=== PATIENT | male | born 1955 | race Caucasian/White ===

== ENCOUNTER 2020-08-21 11:42 | Day surgery (SDC) | payer OTHER ==
[~2020-08-21] VITALS: Ht 172.7 cm; Wt 87.2 kg
[2020-08-21] MEDS ORDERED: B COMPLEX FORM0.4 MG (11:58)
[2020-08-21] MEDS ORDERED: MINO2.5 (11:58)
[2020-08-21] MEDS ORDERED: ROSU5 (11:58)
[2020-08-21] MEDS ORDERED: Echinacea80 MG (11:59)
[2020-08-21] MEDS ORDERED: OCUVITE BLUE L1 EACH (11:59)
[2020-08-21] MEDS ORDERED: Coq-1030 MG (11:59)
== END 2020-08-21 13:57 | disposition home or self-care (01) ==
LOC: ORSCSDS 11:42
PROVIDERS: Student in an Organized Health Care Education/Training Program
PROC: 0DBK8ZX Excision of Ascending Colon, Via Natural or Artificial Opening Endoscopic, Diagnostic (ICD-10-PCS; principal; 2020-08-21 13:00)
PROC: 0DBN8ZX Excision of Sigmoid Colon, Via Natural or Artificial Opening Endoscopic, Diagnostic (ICD-10-PCS; principal; 2020-08-21 13:00)
PROC: 0DBH8ZX Excision of Cecum, Via Natural or Artificial Opening Endoscopic, Diagnostic (ICD-10-PCS; principal; 2020-08-21 13:00)
PROC: 0DBM8ZX Excision of Descending Colon, Via Natural or Artificial Opening Endoscopic, Diagnostic (ICD-10-PCS; principal; 2020-08-21 13:00)
PROC: 0DBL8ZX Excision of Transverse Colon, Via Natural or Artificial Opening Endoscopic, Diagnostic (ICD-10-PCS; principal; 2020-08-21 13:00)
DX: Z12.11 Encounter for screening for malignant neoplasm of colon (principal); D12.2 Benign neoplasm of ascending colon; D12.0 Benign neoplasm of cecum; Z80.0 Family history of malignant neoplasm of digestive organs; Z86.010 Personal history of colon polyps; E78.5 Hyperlipidemia, unspecified
CPT/HCPCS: 88305; J2704; J7120

== ENCOUNTER 2021-08-21 06:43 | Day surgery (SDC) | payer OTHER ==
[~2021-08-21] VITALS: Ht 172.7 cm; Wt 85.5 kg
[~2021-08-21 06:43] MED LIST: B COMPLEX FORM0.4 MG; Coq-1030 MG; Echinacea80 MG; MINO2.5; OCUVITE BLUE L1 EACH; ROSU10TA
== END 2021-08-21 09:02 | disposition home or self-care (01) ==
LOC: ORSCSDS 06:43
PROVIDERS: Student in an Organized Health Care Education/Training Program
PROC: 0DBN8ZX Excision of Sigmoid Colon, Via Natural or Artificial Opening Endoscopic, Diagnostic (ICD-10-PCS; principal; 2021-08-21 08:00)
PROC: 0DBM8ZX Excision of Descending Colon, Via Natural or Artificial Opening Endoscopic, Diagnostic (ICD-10-PCS; principal; 2021-08-21 08:00)
DX: Z12.11 Encounter for screening for malignant neoplasm of colon (principal); D12.4 Benign neoplasm of descending colon; E78.5 Hyperlipidemia, unspecified; Z86.010 Personal history of colon polyps; Z80.0 Family history of malignant neoplasm of digestive organs
CPT/HCPCS: 88305; J2704; J7120